=== PATIENT | female | born 1985 | race Caucasian/White ===

== ENCOUNTER 2017-03-25 12:26 | Emergency (ER) | payer OTHER ==
[~2017-03-25] VITALS: Wt 71.0 kg
[2017-03-25] MEDS ORDERED: KETOROLAC 30 MG INJ IM STA (13:47)
[2017-03-25 14:20] LABS: ADD SCAN DIFF NO
--- NOTE | 2017-03-25 14:22 | ERD ---
ER Documentation Chief Complaint Date/Time DATE: 03/25/17 TIME: 14:19 Chief Complaint BACK PAIN X 3 DAYS HPI 31-year-old female comes emergency department with bilateral flank pain, epigastric pain, right upper quadrant pain over the last 3 days. Patient describes as bilateral flank pain that is achy, radiating to the suprapubic region, she has not tried anything for this yet. She denies fevers or chills, nausea or vomiting. ROS All systems reviewed and are negative except as per history of present illness. Medications Home Meds Active Scripts Ciprofloxacin Hcl* (Ciprofloxacin Hcl*) 500 Mg Tablet, 500 MG PO BID for 7 Days , TAB Prov:LES RICARDO PA-C 03/25/17 Ibuprofen* (Motrin*) 600 Mg Tab, 600 MG PO Q6, #30 TAB Prov:LES RICARDO PA-C 03/25/17 Hydrocodone/Acetaminophen ([place] 5-325 Tablet) 1 Each Tablet, 1 TAB PO Q6H Y for PAIN, #7 TAB Prov:LES RICARDO PA-C 03/25/17 PMhx/Soc Medical and Surgical Hx: pt denies Medical Hx, pt denies Surgical Hx Physical Exam Vitals Vital Signs Date Time Temp Pulse Resp B/P Pulse Ox O2 Delivery O2 Flow Rate FiO2 03/25/17 12:29 98.0 99 18 124/63 99 Physical Exam General: Well-developed, well-nourished. The patient appears in no acute distress. HEENT: Head is normocephalic, atraumatic. No scleral icterus. Neck: Supple. Nontender. Lungs: Clear to auscultation. Normal air movement. Heart: Regular rate and rhythm. S1 and S2 are normal. No murmurs, gallops, or rubs. Abdomen: Soft, nontender, nondistended. Bowel sounds are normoactive. +CVA tenderness bilaterally Extremities: No clubbing or cyanosis. Normal pulses. Moving extremities x 4. No weakness. Neurologic: Alert and oriented 3. No focal deficits. Skin: Normal turgor. No rash or lesions. Result Diagram: 03/25/17 1400 03/25/17 1400 Results 24 hrs Laboratory Tests Test 03/25/17 14:00 03/25/17 14:20 White Blood Count 7.110^3/ul Red Blood Count 5.0310^6/ul Hemoglobin 12.5g/dl Hematocrit 39.2% Mean Corpuscular Volume 77.9fl Mean Corpuscular Hemoglobin 24.9pg Mean Corpuscular Hemoglobin Concent 31.9g/dl Red Cell Distribution Width 14.6% Platelet Count 14683^3/UL Mean Platelet Volume 10.8fl Neutrophils % 58.6% Lymphocytes % 34.2% Monocytes % 5.9% Eosinophils % 0.6% Basophils % 0.4% Nucleated Red Blood Cells % 0.0/100WBC Neutrophils # 4.210^3/ul Lymphocytes # 2.410^3/ul Monocytes # 0.410^3/ul Eosinophils # 0.010^3/ul Basophils # 0.010^3/ul Nucleated Red Blood Cells # 0.010^3/ul Sodium Level 139mmol/L Potassium Level 3.8mmol/L Chloride Level 102mmol/L Carbon Dioxide Level 26mmol/L Anion Gap 15 Blood Urea Nitrogen 12mg/dl Creatinine 0.61mg/dl Glucose Level 89mg/dl Calcium Level 9.3mg/dl Total Bilirubin 0.2mg/dl Direct Bilirubin 0.00mg/dl Indirect Bilirubin 0.2mg/dl Aspartate Amino Transf (AST/SGOT) 21IU/L Alanine Aminotransferase (ALT/SGPT) 28IU/L Alkaline Phosphatase 53IU/L Total Protein 7.7g/dl Albumin 4.6g/dl Globulin 3.10g/dl Albumin/Globulin Ratio 1.48 Lipase 92U/L Urine Color LT. YELLOW Urine Clarity CLEAR Urine pH 5.0 Urine Specific [place] >=1.030 Urine Ketones NEGATIVE Urine Nitrite NEGATIVE Urine Bilirubin NEGATIVE Urine Urobilinogen 0.2 E.U./dL Urine Leukocyte Esterase NEGATIVE Urine Hemoglobin NEGATIVE Urine Glucose NEGATIVE% Urine Total Protein NEGATIVE Current Medications Medications (Trade) Dose Ordered Sig/Paula Route PRN Reason Start Time Stop Time Status Last Admin Dose Admin Ketorolac Tromethamine (Toradol) 30 mg ONCE STAT IM 03/25/17 13:47 03/25/17 13:48 DC 03/25/17 14:04 PROCEDURE: CT Abdomen and Pelvis without contrast. CLINICAL INDICATION: Bilateral flank pain. TECHNIQUE: CT scan of the abdomen and pelvis without contrast was performed on a multi-slice CT scanner without intravenous contrast. Coronal and sagittal reformatted images were obtained from the axial source images. Images were reviewed on a high-resolution PACS workstation. One or more of the following does reduction techniques were used: Automated exposure control; adjustment of the mA and/or kV according to patient size; use of the aorta of reconstruction technique. The total exam CTDI equals 10.2 mGy and the total exam DLP equals 575.4 mGy-cm. COMPARISON: None available. FINDINGS: Breathing artifact mildly limits evaluation of the lung bases. The lung bases are grossly clear. Heart size is normal, and there is no evidence of pericardial thickening or effusion. The liver, spleen, and pancreas are normal given limitations of a noncontrast CT examination. There is mild gallbladder wall thickening. There is suggestion of a stone within the gallbladder.. The adrenal glands are normal. The kidneys without renal calculus or hydronephrosis. The aorta is of normal caliber. There is no retroperitoneal lymph node enlargment. There is no evidence of large or small bowel obstruction. A normal appendix is identified. No free fluid or fluid collections are identified. No inflammatory changes are seen. The uterus is present. No enlarged pelvic sidewall lymph nodes are seen. The bladder is decompressed and collapsed. There is trace pelvic free fluid, likely physiologic. The inguinal regions are unremarkable. The bones are intact. IMPRESSION: 1. Cholelithiasis with suggested gallbladder wall thickening. Gallbladder wall thickening may be in part due to a contracted gallbladder. Recommend further evaluation with abdominal ultrasound. 2. Trace pelvic free fluid is likely physiologic. 3. Otherwise unremarkable noncontrast CT appearance of the abdomen and pelvis. RPTAT: KK .Slade Shields MD, Date Time Electronically viewed and signed by .Slade Shields MD, MD on 2016 15:24 .B/ PROCEDURE: Right upper quadrant ultrasound CLINICAL INDICATION: Abdominal pain TECHNIQUE: Multiple real-time images were acquired of the patient's abdomen and right retroperitoneum utilizing a high resolution transducer. COMPARISON: None FINDINGS: The liver is normal in echogenicity and measures 15.9 cm. No focal hepatic masses are seen. The gallbladder is physiologically distended. There are multiple calcified gallstones. There is mild thickening of the gallbladder wall. No pericholecystic fluid is seen. The intra and extrahepatic bile ducts are normal in caliber. The common bile duct measures 2.1 mm. Midline images demonstrate the pancreas to be normal in echogenicity without obvious inflammatory change. Survey views of the right kidney demonstrate no evidence of hydronephrosis or renal calculi. The right kidney measures 10.5 cm. IMPRESSION: 1. Cholelithiasis. There is associated gallbladder wall thickening. IN The right clinical setting this is suggestive of acute cholecystitis. 2. No biliary duct dilatation RPTAT: HH Signed By: Moreno Lny MD 03/25/2017 4:28:23 PM Procedures/MDM 31-year-old female comes in with abdominal pain to bilateral flank, as well as right upper quadrant. Patient had a full workup done, there is a history of fever, no nausea, vomiting. There is no leukocytosis or evidence of transaminitis or pancreatitis. She does have gallstones, gallbladder wall thickening however no Sherwood sign, and she does not have any evidence of acute cholecystitis, acute pancreatitis or choledocholithiasis. She was given all results, was asked to follow-up with her primary care doctor to get a referral to a general surgeon. Departure Diagnosis: Primary Impression: Gallstone Cholecystitis presence: without cholecystitis Biliary obstruction: without biliary obstruction Qualified Code: K80.20 - Calculus of gallbladder without cholecystitis without obstruction Condition: LES Blunt PA-C March 25, 2017 14:22
[2017-03-25 14:23] LABS: BASOPHILS % 0.4 % (0.0-2.0); EOSINOPHILS % 0.6 % (0.0-7.0); HEMATOCRIT 39.2 % (37.0-47.0); HEMOGLOBIN 12.5 g/dl (12.0-16.0); LYMPHOCYTES # 2.4 10^3/ul (0.8-2.9); LYMPHOCYTES % 34.2 % (15.0-51.0); MEAN CORPUSCULAR HEMOGLOBIN 24.9 pg (29.0-33.0); MEAN CORPUSCULAR HGB CONC 31.9 g/dl (32.0-37.0); MEAN CORPUSCULAR VOLUME 77.9 fl (82.0-101.0); MEAN PLATELET VOLUME 10.8 fl (7.4-10.4); MONOCYTE # 0.4 10^3/ul (0.3-0.9); MONOCYTES % 5.9 % (0.0-11.0); NEUTROPHIL # 4.2 10^3/ul (1.6-7.5); NEUTROPHILS % 58.6 % (39.0-77.0); PLATELET COUNT 237 10^3/UL (140-415); RED BLOOD COUNT 5.03 10^6/ul (4.20-5.40); RED CELL DISTRIBUTION WIDTH 14.6 % (11.5-14.5); WHITE BLOOD COUNT 7.1 10^3/ul (4.8-10.8)
[2017-03-25 14:30] LABS: ADD UMIC NO; URINE BILIRUBIN (Dip) NEGATIVE (NEGATIVE); URINE BLOOD (Dip) NEGATIVE (NEGATIVE); URINE COLOR LT. YELLOW (YELLOW); URINE GLUCOSE (Dip) NEGATIVE (NEGATIVE); URINE KETONES (Dip) NEGATIVE (NEGATIVE); URINE LEUKOCYTE ESTERASE (Dip) NEGATIVE (NEGATIVE); URINE NITRITE (Dip) NEGATIVE (NEGATIVE); URINE TOTAL PROTEIN (Dip) NEGATIVE (NEGATIVE); URINE UROBILINOGEN (Dip) 0.2 E.U./dL (0.1-1.0)
[2017-03-25 14:38] LABS: ALBUMIN 4.6 g/dl (3.3-4.9); POTASSIUM 3.8 mmol/L (3.5-5.1)
[2017-03-25 14:40] LABS: CREATININE 0.61 mg/dl (0.44-1.00)
[2017-03-25 14:41] LABS: ALBUMIN/GLOBULIN RATIO 1.48; BILIRUBIN,INDIRECT 0.2 mg/dl (0-1.1); BILIRUBIN,TOTAL 0.2 mg/dl (0.2-1.3); CALCIUM 9.3 mg/dl (8.4-10.2); TOTAL PROTEIN 7.7 g/dl (6.1-8.1)
--- NOTE | 2017-03-25 15:24 | RADRPT ---
PROCEDURE: CT Abdomen and Pelvis without contrast. CLINICAL INDICATION: Bilateral flank pain. TECHNIQUE: CT scan of the abdomen and pelvis without contrast was performed on a multi-slice CT [facility] without intravenous contrast. Coronal and sagittal reformatted images were obtained from the axial source images. Images were reviewed on a high-resolution PACS workstation. One or more of the following does reduction techniques were used: Automated exposure control; adjustment of the mA an d/or kV according to patient size; use of the aorta of reconstruction technique. The total exam CTD I equals 10.2 mGy and the total exam DLP equals 575.4 mGy-cm. COMPARISON: None available. FINDINGS: Breathing artifact mildly limits evaluation of the lung bases. The lung bases are grossly clear. H eart size is normal, and there is no evidence of pericardial thickening or effusion. The liver, spleen, and pancreas are normal given limitations of a noncontrast CT examination. There is mild gallbladder wall thickening. There is suggestion of a stone within the gallbladder.. The adrenal glands are normal. The kidneys without renal calculus or hydronephrosis. The aorta is of normal caliber. There is no retroperitoneal lymph node enlargment. There is no evidence of large or small bowel obstruction. A normal appendix is identified. No anny e fluid or fluid collections are identified. No inflammatory changes are seen. The uterus is present. No enlarged pelvic sidewall lymph nodes are seen. The bladder is decompresse d and collapsed. There is trace pelvic free fluid, likely physiologic. The inguinal regions are un remarkable. The bones are intact. IMPRESSION: 1. Cholelithiasis with suggested gallbladder wall thickening. Gallbladder wall thickening may be i n part due to a contracted gallbladder. Recommend further evaluation with abdominal ultrasound. 2. Trace pelvic free fluid is likely physiologic. 3. Otherwise unremarkable noncontrast CT appearance of the abdomen and pelvis. RPTAT: KK .Slade Shields MD, MD Date Time Electronically viewed and signed by .Slade Shields MD, MD on 03/25/2017 15:24 .B/
[2017-03-25] MEDS ORDERED: IBUP-1542 PO (15:51)
[2017-03-25] MEDS ORDERED: HYDR-906 PO (15:51)
[2017-03-25] MEDS ORDERED: CIPR500T4 PO (15:55)
--- NOTE | 2017-03-25 18:59 | RADRPT ---
PROCEDURE: Right upper quadrant ultrasound CLINICAL INDICATION: Abdominal pain TECHNIQUE: Multiple real-time images were acquired of the patient's abdomen and right retroperiton eum utilizing a high resolution transducer. COMPARISON: None FINDINGS: The liver is normal in echogenicity and measures 15.9 cm. No focal hepatic masses are seen. The ga llbladder is physiologically distended. There are multiple calcified gallstones. There is mild thi ckening of the gallbladder wall. No pericholecystic fluid is seen. The intra and extrahepatic bile ducts are normal in caliber. The common bile duct measures 2.1 mm. Midline images demonstrate the pancreas to be normal in echogenicity without obvious inflammatory ch maru. Survey views of the right kidney demonstrate no evidence of hydronephrosis or renal calculi. The ri ght kidney measures 10.5 cm. IMPRESSION: 1. Cholelithiasis. There is associated gallbladder wall thickening. IN The right clinical setting this is suggestive of acute cholecystitis. 2. No biliary duct dilatation RPTAT: HH .Moreno Lyn MD, Date Time Electronically viewed and signed by .Moreno Lyn MD, on 03/25/2017 16:28 .W/
== END 2017-03-25 16:45 | disposition home or self-care (01) ==
LOC: FTE 12:26
DX: K80.20 Calculus of gallbladder without cholecystitis without obstruction (principal)
CPT/HCPCS: 74176; 76705; 80053; 81003; 83690; 85025; 96372; J1885; Z7502

== ENCOUNTER 2017-07-18 11:31 | Emergency (ER) | payer OTHER ==
[~2017-07-18] VITALS: Ht 162.6 cm; Wt 72.0 kg
[~2017-07-18 11:31] MED LIST: CIPR500T4 PO; HYDR-906 PO; IBUP-1542 PO
[2017-07-18 11:38] VITALS: Ht 162.6 cm; Wt 72.0 kg
[2017-07-18] MEDS ORDERED: ACETAMINOPHEN 325 MG TAB PO ONE (13:30)
[2017-07-18 13:34] LABS: URINE BLOOD (Dip) POC 2+ (NEGATIVE)
--- NOTE | 2017-07-18 14:09 | RADRPT ---
PROCEDURE: XR Chest. CLINICAL INDICATION: chest pain TECHNIQUE: Single AP view of the chest were obtained COMPARISON: None FINDINGS: The heart and mediastinum are within normal limits. The pulmonary vasculature are unremarkable. The aorta is unremarkable. There is no lung consolidation, pleural effusion or pneumothorax. There i s no acute osseous abnormality. IMPRESSION: No acute disease. RPTAT: AA .Yasmeen Man MD, Date Time Electronically viewed and signed by .Yasmeen Man MD, on 07/18/2017 14:09 .J/
--- NOTE | 2017-07-18 14:10 | RADRPT ---
PROCEDURE: XR Cervical Spine. CLINICAL INDICATION: pain TECHNIQUE: AP, lateral and odontoid views of the cervical spine were performed. The images were re viewed on a PACS workstation. COMPARISON: None. FINDINGS: The vertebral body alignment, height and osseous mineralization are normal. The intervertebral disc spaces are well maintained. There are no abnormal calcifications. The prevertebral soft tissues are normal. No radiopaque foreign bodies are identified. There is no acute fracture or subluxation. RPTAT: AA IMPRESSION: Normal cervical spine. .Yakov Faith MD, MD Date Time Electronically viewed and signed by .Yakov Faith MD, MD on 07/18/2017 14:10 .S/
[2017-07-18] MEDS ORDERED: ACET500C5 PO (14:19)
[2017-07-18] MEDS ORDERED: CYCL-319 PO (14:19)
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
--- NOTE | 2017-07-18 14:34 | RADRPT ---
PROCEDURE: XR Thoracic Spine. CLINICAL INDICATION: Back pain . TECHNIQUE: Thoracic spine study including AP, swimmers and lateral views was performed. COMPARISON: No prior studies are available for comparison. FINDINGS: Thoracic spine demonstrates a normal kyphosis . No fractures or destructive bony lesions are obser deborah. Intervertebral disk heights appear normal. The facet joints are unremarkable. Soft tissues s urrounding the spine appear normal. IMPRESSION: Unremarkable thoracic spine. If further characterization is needed CT or MRI could be helpful. If there is high clinical suspicion for traumatic injury, further evaluation with CT should be consi dered. RPTAT: AA .Errol Nazario MD, Date Time Electronically viewed and signed by .Errol Nazario MD, on 07/18/2017 14:34 .P/
[2017-07-18 15:00] VITALS: BP 124/65; PULSE 71; RESP 18
== END 2017-07-18 15:00 | disposition home or self-care (01) ==
LOC: FTE 11:31
DX: S39.92XA Unspecified injury of lower back, initial encounter (principal); R07.9 Chest pain, unspecified; V49.50XA Passenger injured in collision with unspecified motor vehicles in traffic accident, initial encounter
CPT/HCPCS: 71010; 72040; 72072; 72100; 81003; Z7502; Z7610

== ENCOUNTER 2017-09-13 09:18 | Emergency (ER) | END 2017-09-13 12:55 | disposition home or self-care (01) | DX: O26.891 Other specified pregnancy related conditions, first trimester (principal); R10.2 Pelvic and perineal pain; N64.4 Mastodynia; O99.89 Other specified diseases and conditions complicating pregnancy, childbirth and the puerperium; Z3A.08 8 weeks gestation of pregnancy | CPT/HCPCS: 36415; 76642; 76801; 81001; 84702; 85025; 86900; 86901; 87086; Z7502; Z7610 ==

== ENCOUNTER 2018-04-11 23:11 | Outpatient (CLI) | END 2018-04-12 17:45 | disposition home or self-care (01) ==

== ENCOUNTER 2018-04-15 01:59 | Inpatient (IN) | END 2018-04-17 19:06 | disposition home or self-care (01) | DRG 775 ==